=== PATIENT | female | born 1970 | race Caucasian/White ===

== ENCOUNTER 2017-03-22 19:46 | Emergency (ER) | payer SELFPAY ==
[2017-03-22 21:05] VITALS: BP 111/77
[2017-03-22] MEDS ORDERED: Lidocaine 2% EPI 1:200000 MPF* 20 ML VIAL INJ ONE (21:37)
[2017-03-22] MEDS ORDERED: Lidocaine 2% W/EPI 1:100,000* 20 ML MDV ONE (21:39)
--- NOTE | 2017-03-22 21:47 | UC ---
Skin Complaint HPI - HPI Summary HPI Summary: 46 yo female with right buttock pain swelling x 1 week ? bite now feverish and chills mylagias no hx skin infections - History of Current Complaint Chief Complaint: UCSkin Time Seen by Provider: 03/22/17 21:30 Stated Complaint: SPIDER BITE-RT HIP Hx Last Menstrual Period: 03/08/17 Onset/Duration: Sudden Onset Skin Exposure Onset/Duration: Weeks Ago Timing: Constant Onset Severity: Mild Current Severity: Moderate Pain Intensity: 6 Pain Scale Used: 0-10 Numeric Character: Swelling, Pain, Redness, Painful Aggravating: Touch Associated Signs & Symptoms: Positive: Fever, Chills - Allergy/Home Medications Allergies/Adverse Reactions: Allergies Allergy/AdvReac Type Severity Reaction Status Date / Time Penicillins Allergy Severe Vomiting Verified 03/22/17 21:05 Home Medications: Home Medications Alprazolam [Xanax Xr] 1 mg PO TID 03/22/17 [History Confirmed 03/22/17] Clonazepam [Klonopin] 1 mg PO BID 03/22/17 [History Confirmed 03/22/17] Clonidine HCl [Catapres 0.2 MG TAB] 0.2 mg PO BID 03/22/17 [History Confirmed ] Fluoxetine HCl [Prozac] 40 mg PO DAILY 03/22/17 [History Confirmed 03/22/17] Losartan/HCTZ 100/25 (NF) [Hyzaar 100/25 (NF)] 1 tab PO DAILY 03/22/17 [History Confirmed 03/22/17] QUEtiapine TAB* [SEROquel TAB*] 25 mg PO DAILY 03/22/17 [History Confirmed 03/22] Review of Systems Constitutional: Fever, Chills Skin: Negative Eyes: Negative ENT: Negative Respiratory: Negative Cardiovascular: Negative Gastrointestinal: Negative Genitourinary: Negative Motor: Negative Neurovascular: Negative Musculoskeletal: Myalgia Neurological: Negative Psychological: Negative All Other Systems Reviewed And Are Negative: Yes PMH/Surg Hx/FS Hx/Imm Hx Previously Healthy: Yes - Surgical History Surgical History: None - Family History Known Family History: Positive: Cardiac Disease, Hypertension, Diabetes - Social History Alcohol Use: None Substance Use Type: None Smoking Status (MU): Heavy Every Day Tobacco Smoker Type: Cigarettes Amount Used/How Often: 1 ppd Length of Time of Smoking/Using Tobacco: 10 yrs Have You Smoked in the Last Year: Yes Physical Exam Triage Information Reviewed: Yes Appearance: Well-Appearing, No Pain Distress, Well-Nourished Vital Signs: Initial Vital Signs Temp 100.9 F 03/22/17 20:57 Pulse 82 03/22/17 20:57 Resp 14 03/22/17 20:57 BP 111/77 03/22/17 20:57 Pulse Ox 96 03/22/17 20:57 Vital Signs Reviewed: Yes Eyes: Positive: Conjunctiva Clear ENT: Positive: Hearing grossly normal. Negative: Nasal congestion, Nasal drainage, Trismus, Muffled/hoarse voice Neck: Positive: Supple, Nontender Respiratory: Positive: Lungs clear, Normal breath sounds, No respiratory distress, No accessory muscle use Cardiovascular: Positive: RRR, No Murmur Musculoskeletal: Positive: ROM Intact Neurological: Positive: Alert Psychological Exam: Normal Course/Dx - Course Course Of Treatment: has appt to see provider tomorrow. penicillins cause nausea..no true allergy - Diagnoses Provider Diagnoses: left buttock abscess with overlying cellulitis Procedures - Incision and Drainage Site: right buttock Anesthesia: Lidocaine Instrument(s): Scalpel, Other - < 1 cc thin pus expressed Packing: Other - sterile dressing Discharge - Discharge Plan Condition: Stable Disposition: HOME Prescriptions: Cephalexin CAP* [Keflex CAP*] 500 mg PO QID #28 cap Sulfamethox/Trimethoprim DS* [Bactrim DS 800/160 TAB*] 1 tab PO BID #14 tab Patient Education Materials: Cellulitis (ED), Abscess (ED) Referrals: Richard Ram NP [Primary Care Provider] - Additional Instructions: warm soapy soaks 2-4 x day see your provider tomorrow as planned Images Front/Back of Body, Lg ([place]): 1 - 8 x14 area of redness/induration
[2017-03-22] MEDS ORDERED: Cephalexin CAP* 500 MG PO ONE ×2 (21:57→21:58)
[2017-03-22] MEDS ORDERED: Sulfamethox/Trimethoprim DS 800/160* TAB PO ONE ×2 (21:57→21:58)
== END 2017-03-22 22:22 | disposition home or self-care (01) ==
LOC: UCCORT 19:46 → MERGE 19:46 → UCCORT 22:22
DX: L02.31 Cutaneous abscess of buttock (principal); L03.317 Cellulitis of buttock; Z88.0 Allergy status to penicillin; F17.210 Nicotine dependence, cigarettes, uncomplicated
CPT/HCPCS: 10060; 87070; 87205; 99203; A9270-GY; G0463